=== PATIENT | female | born 1980 | race Caucasian/White ===

== ENCOUNTER → 2018-03-09 11:50 | Outpatient (CLI) | payer MEDICAID, SELFPAY ==
[2018-03-11 11:20] LABS: HPV Reflexed? NOT INDICATED
--- OUTSIDE RECORDS SUMMARY | 2018-04-25 15:18 | XMS RPT_ITS ---
:1980 Author Organization OHIP Care Team Providers Name Role Phone Yanely Velazquez Attending Unavailable Bertha, Eleanor Bethany Admitting Unavailable Bertha, Eleanor Bethany Attending Unavailable Bertha, Eleanor K Primary Care Unavailable Nikki Capellan Admitting Unavailable Nikki Capellan Attending Unavailable Bertha, Eleanor K Primary Care Unavailable Bitner, Nestor Admitting Unavailable Nikki Capellan Attending Unavailable Bertha, Eleanor K Primary Care Unavailable Marilia, Nestor Admitting Unavailable Nikki Capellan Attending Unavailable Bertha, Eleanor K Primary Care Unavailable Bitner, Nikki Fluler Admitting Unavailable BitnerNikki Attending Unavailable Bertha, Eleanor K Primary Care Unavailable Bertha, Eleanor K Primary Care Unavailable DO Wolfgang Murphy Admitting Unavailable DO Wolfgang Murphy Attending Unavailable BERTHA, ELEANOR Admitting Unavailable ELEANOR STONE Attending Unavailable BERTHA, ELEANOR Primary Care Unavailable NIKKI FU Admitting Unavailable NIKKI FU Attending Unavailable NIKKI FU Primary Care Unavailable ELEANOR STONE Consulting Unavailable PROVIDER, UNKNOWN Consulting Unavailable PROBLEMS PROBLEMS DATE TYPE CONDITION / CODE ATTENDING STATUS SOURCE 04/07/2018 Principle Gastro-esophageal ELEANOR STONE Diagnosis reflux disease [facility] Hospital esophagitis / Repository K219(ICD-10) 04/05/2018 Admitting Cutaneous abscess NIKKI FU [facility] L0201(ICD-10[facility] Repository 04/05/2018 Principle Cutaneous abscess NIKKI FU Active Jaden Tobin Diagnosis of face / T [facility] L0201(ICD-10) Hospital Repository 04/05/2018 Secondary Obesity, NIKKI FU Active Jaden Tobin Diagnosis unspecified / [facility] E669(ICD-10) Hospital Repository 04/05/2018 Secondary Body mass index NIKKI FU Active Jaden Tobin Diagnosis (BMI) 36.0-36.9, [facility] adult / Hospital Z6836(ICD-10) Repository 04/05/2018 Secondary Major depressive NIKKI FU Active Jaden oTbin Diagnosis disorder, single [facility], Hospital unspecified / Repository F329(ICD-10) 03/09/2018 Unknown Z12.4 - Encounter Yanely Velazquez for screening for [facility] neoplasm of Repository cervix / Z12.4(ICD-10) PROCEDURES PROCEDURES No Procedure Records FoundRESULTS RESULTS Observed: 04/05/2018 Status: F Source: JADEN TOBIN GRAM STAIN ROUTINE 1:36 PM [facility] REPOSITORY GRAM STAIN ROUTINE GRAM STAIN ROUTINE SOURCE _RT._FACE_WOUND__ 04/06/18.1154.BKO. AMOUNT DESCRIPTION _NO_ORGANISMS_SEEN 04/06/18.1154.BKO. Performed By: #### [id number] #### [facility],[address] [place] [id number] Observed: 04/05/2018 Status: Denys Source: JADEN TOBIN CULTURE WOUND 1:36 PM [facility] REPOSITORY CULTURE WOUND _WOUND CULTURE_ M I C R O B I O L O G Y R E P O R T FINAL Antimicrobial Susceptibility and Organism Identification Report Specimen Number : [id number] Requested : 04/05/18 Specimen Source : WOUND Collected : 04/05/18 13:36 Torres of Isolation : AMBULATORY Received : 04/05/18 13:36 Requesting Physician : krystyna ortiz Patient/Specimen Tests and Comments Specimen Comments FINAL REPORT: ABUNDANT GROWTH GRAM POSITIVE COCCI source: wound to right side of face Organisms Identified -------- * 01 Methicillin Resistant Staphylococcus aureus 04/07/18 Comments abundant growth Tech : Source : WOUND ID # : [id number] FINAL CALLED TO/BY JOSE/PIERRE/MARISOL [phone] Report Date : / / : Collected : 04/05/18 13:36 Continued on Next Page Skye I Neelam R O B I O L O G Y R E P O R T FINAL Antimicrobial Susceptibility and Organism Identification Report Isolate 01 Methicillin Resistant Staphylococcus aureus Methicillin Resistant Staphylococcus aureus DRUG ALEC Sys. Urine UNITS ML/DL --- ----- ----- Amp/Sulbactam 16/8 R* Ampicillin >8 R* Amox/K Clav >4/2 R* Clindamycin <=0.5 S Cefoxitin Screen >4 POS Ciprofloxacin >2 R Daptomycin <=0.5 S Erythromycin >4 R Nitrofurantoin <=32 Gentamicin <=4 S Inducible Clindamycin <=4/0.5 NEG Levofloxacin 4 I Linezolid 4 S Moxifloxacin 2 S Oxacillin >2 R Penicillin >8 R* Rifampin <=1 S Synercid <=0.5 S Trimeth/Sulfa <=0.5/9.5 S Tetracycline <=4 S Vancomycin 2 S B-Lactamase Positive +, ++, +++, or S = Susceptible N/R = Not Reported Marina = Beta Lactamase Positive I = Intermediate CC = Cost Code TFG = Thymidine-dependent Strain R = Resistant ALEC = mcg/ml (mg/L) Blank = Data not available, or drug not advisable or tested For Blood and CSF Isolates, a Beta-Lactamase test is recommended for Enterococus species. IB appears in place of S, I (S), +, ++, or +++ with species known to possess inducible B-lactamases; potentially they may become resistant to all B-lactam drugs. Monitoring of patients during/after therapy is recommended. Avoid other/combined B-lactam drugs. (a) Use maximum doses of drug with an aminoglycoside for P. aeruginosa in patients with granulocytopenia or serious infections. (b) Breakpoints based on parenteral dose. For cefuroxime Axetil (PO) use <8=S, 8-16=I, >16=R. (c) For non-enterococcal streptococci, Micrococcus species, and Listeria species, refer to the Ampicillin interpretation. * Interpretations based on approx. adult attainable systemic/urine levels, except drugs with <3 dilutions, which print NCCLS. Doses are guidelines; consider weight and renal/hepatic function. Urine interpretation for lower UTI only. Interpretations based on NCCLS M7-A2. Ticar/K Clav'ate for gram positives based on sex worker or escort's breakpoints. Tech : _0 Source : WOUND ID04/07/[id number].JLN. F L Report Date : / / : Collected : 04/05/18 13:36 04/07/18.0757.JLN. 04/06/18.0925.BKO. 04/07/18.0757.JLN.COMPLETE Performed By: #### [id number] #### [place] [id number] URINE Collected: 04/05/2018 Status: F Source: [facility] 1:05 PM [facility] REPOSITORY TYPE CODE TESTS RESULT OUT OF REFERENCE UNITS RANGE LAB NEGATIVE UR(LOINC) UR NEGATIVE LAB INTERNAL QC(LOINC) INTERNAL QC PASS LAB EXTERNAL QC DONE?(LOINC) EXTERNAL QC YES DONE? Performed By: #### [id number] #### [place] [id number] OPERATIVE PROCEDURES Observed: 04/05/2018 Status: F Source: [facility] 12:53 PM [facility] REPOSITORY [facility] OPERATIVE REPORT NAME ACCOUNT SEX AGE ADMIT DISCHARGE PT MED. RECORD# NUMBER DATE DATE TYPE CONTRERAS, [id number] F 37 04/05/18 04/05/18 2 LUANNE Hodges [id number] ROOM: [facility] DATE OF : 1980 DICTATING PHYSICIAN: Nikki Fu DATE OF SURGERY: April 05, 2018 SURGEON: Nikki Fu MD VOCATIONAL REHABILITATION SPECIALIST: ANESTHESIOLOGIST: ANESTHETIC: MAC with 1% lidocaine and 0.5% Marcaine without epinephrine locally. PREOPERATIVE DIAGNOSIS: Facial abscess. POSTOPERATIVE DIAGNOSIS: Facial abscess. OPERATION PERFORMED: Incision and drainage. COMPLICATIONS: None. ESTIMATED BLOOD LOSS: 2 mL. DRAINS: Half-inch Iodoform packed within the wound. DISPOSITION: The patient recovered in the PACU and then was discharged home. Diet: Regular. Activity: Regular. Medications: The patient was given Bactrim and Levaquin by her PCP and was instructed to resume this medication and finish the entire prescription. In addition, she was given [place] 5/325 mg 10 tablets as needed for pain analgesia. She was advised to remove the packing on postoperative day #1 and follow up in Dr. Fu's clinic on April 08, 2018. DESCRIPTION OF OPERATION: Following initiation of MAC anesthesia, the patient was sterilely prepped and draped in the usual sterile supine position. The patient was noted to have probably 7-8 cm of intense erythema and induration with central fluctuance and an area of approximately 0.5 cm of nonviable necrotic fibrinous skin. An elliptical incision was proposed around this. The elliptical incision was anesthetized with 1% and 0.5% Marcaine without epinephrine. The nonviable skin was then removed. Upon removal, there was slight drainage of purulent material. The wound fluid was Page 1 of 2 LUANNE CONTRERAS Operative Report cultured. The area was squeezed until no further purulent material came from the wound. The wound was then irrigated with copious amounts of saline. The wound was then explored with a hemostat to make sure that all loculations and pockets were broken up. Again, the wound was irrigated with more saline. The wound was then tightly packed with one-half inch Iodoform gauze. All instrument, needle and sponge counts were correct x2. The wound was appropriately dressed and bandaged. The patient was then awakened and taken to the PACU in good and stable condition. Dictated By: Nikki Fu MD 04/05/18 14:29 JOB #: [id number] Transcribed By: lonnie 04/05/18 15:59 Electronically signed by: E-SIGN DR. FU 04/11/18 10:25 Page 2 of 2 LUANNE CONTRERAS Operative Report CT MAXILLOFACIAL W/ Observed: 04/03/2018 Status: F Source: YAZIDI CONTRAST 5:42 PM [facility] REPOSITORY Exam Date/Time: 04/03/2018 17:57 EST Reason for Exam: facial abcess;Other (please specify) Report STUDY: CT Maxillofacial w/ Contrast 04/03/2018 5:57 pm INDICATION: Right facial swelling x4 days COMPARISON: None. ACCESSION NUMBER(S): [id number] ORDERING CLINICIAN: Wolfgang Murphy TECHNIQUE: Thin cut axial CT images through the facial bones were obtained and reconstructed in the coronal and sagittal plane. 100 mL Omnipaque 350 given intravenously. FINDINGS: Asymmetric soft tissue fat stranding involving subcutaneous soft tissues of the right face and overlying the right mandible and involving the right emergency worker muscle and right parotid gland without drainable fluid collection. Findings felt to represent cellulitis/infection. Parapharyngeal space is maintained bilaterally Nasopharyngeal tissues symmetric. Scattered dental disease. Epiglottis, aryepiglottic folds and level true /false cords appear grossly unremarkable. Mild heterogeneity thyroid gland which may represent very small benign colloid type cysts and/or papillary or follicular type lesions Posterior fossa bone artifact however 4th ventricle midline/not effaced Bilateral mastoid antrum well aerated. Mucosal thickening bilateral ethmoid air cells. IMPRESSION: Exam Date/Time: 04/03/2018 17:57 EST Report Right facial cellulitis. FINAL REPORT Dictated: 04/03/2018 6:32 pm Davy Bender DO Signed (Electronic Signature): 04/03/2018 6:32 pm Signed by: Davy Bender DO Technologist: CHAD CBC W/ AUTO DIFF Collected: 04/03/2018 Status: F Source: YAZIDI 3:56 PM [facility] REPOSITORY TYPE CODE TESTS RESULT OUT OF RANGE REFERENCE UNITS LAB 65137885(L 3.6-11.0 E3/mcL OINC) Normal WBC 10.4 LAB 66987998(L 3.90-5.40 E6/mcL OINC) Normal RBC 4.22 LAB 07832107(L 12.0-16.0 G/DL OINC) Low Hgb 11.5 LAB 86911933(L 36.0-48.0 % OINC) Low Hct 35.5 LAB 28033870(L 11.5-14.5 % OINC) High RDW 15.1 LAB 73266132(L 27.0-31.0 pg OINC) Normal MCH 27.3 LAB 80423754(L 33.0-37.0 G/DL OINC) Low MCHC 32.5 LAB 49926708(L 78.0-100.0 fL OINC) Normal MCV 84.1 LAB 48818833(L 7.4-11.0 fL OINC) Normal MPV 8.2 LAB 81674097(L 130-400 E3/mcL OINC) Normal Platelet 273 Performed By: #### [id number] #### [facility]ANT[facility]H [facility] [place] [id number] AUTO DIFF Collected: 04/03/2018 Status: F Source: YAZIDI 3:56 PM [facility] REPOSITORY Order Comment: Order Added by Discern Expert. TYPE CODE TESTS RESULT OUT OF RANGE REFERENCE UNITS LAB 39055951(L 37.0-75.0 % OINC) High Neutro Auto 79.7 LAB 39933755(L 20.0-55.0 % OINC) Low Lymph Auto 11.9 LAB 30026484(L 0.0-10.0 % OINC) Normal Bonner Auto 7.4 LAB 06693015(L 0.0-11.0 % OINC) Normal Eos Auto 0.6 LAB 36990920(L 0.0-2.0 % OINC) Normal Basophil Auto 0.4 LAB 85447010(L 1.4-6.5 E3/mcL OINC) High Neutro 8.3 Absolute LAB 58369480(L 1.2-3.4 E3/mcL OINC) Normal Lymph Absolute 1.2 LAB 38605099(L 0.0-0.7 E3/mcL OINC) High Bonner Absolute 0.8 LAB 08386708(L 0.0-0.7 E3/mcL OINC) Normal Eos Absolute 0.1 LAB 43321002(L 0.0-0.2 E3/mcL OINC) Normal Basophil 0.0 Absolute Performed By: #### [id number] #### [facility]5 [place] [id number] LACTIC ACID Collected: 04/03/2018 Status: F Source: YAZIDI 3:56 PM [facility] REPOSITORY TYPE CODE TESTS RESULT OUT OF RANGE REFERENCE UNITS LAB 37464494(LO 0.4-2.0 mmol/L INC) Normal Lactic Acid 0.7 Lvl Performed By: #### [id number] #### [facility] [address] [place], [place] [id number] CMP Collected: 04/03/2018 Status: F Source: YAZIDI 3:56 PM [facility] REPOSITORY TYPE CODE TESTS RESULT OUT OF RANGE REFERENCE UNITS LAB 14149910(L 70-99 mg/dL OINC) High Glucose Lvl 103 LAB 83356602(L 6-23 mg/dL OINC) BUN Normal 9 LAB 1410170(LO 0.5-1.1 mg/dL INC) Normal Creatinine 0.6 LAB 72809897(L 8.6-10.3 mg/dL OINC) Calcium Normal Lvl 8.8 LAB 58039718(L 136-145 mEq/L OINC) Low Sodium Lvl 135 LAB 42323399(L 3.5-5.3 mEq/L OINC) Normal Potassium Lvl 3.5 LAB 12912180(L 98-107 mEq/L OINC) Chloride Normal 104 LAB 93305997(L 21.0-32.0 mEq/L OINC) CO2 Normal 24.0 LAB 54158389(L 33-110 Int._Unit/ OINC) L Alk Phos Normal 89 LAB 43484875(L 0.00-1.20 mg/dL OINC) Bili Normal Total 0.27 LAB 46381869(L 3.4-5.0 gm/dL OINC) Albumin Normal Lvl 3.9 LAB 82862399(L 6.4-8.2 gm/dL OINC) Total Normal Protein 6.5 LAB 31825695(L 7-45 Int._Unit/ OINC) L ALT Normal 14 LAB 75348018(L 9-39 Int._Unit/ OINC) L AST Normal 15 LAB 25181233(L 5.4-30.0 ratio OINC) Normal BUN/Creat Ratio 15.0 LAB 70041058(L 10-20 mEq/L OINC) AGAP Normal 11 LAB 57451965(L 2.0-4.0 G/DL OINC) Globulin Normal 3.0 LAB 37944570(L 1.1-1.9 ratio OINC) A/G Normal Ratio 1.5 Performed By: #### [id number] #### [facility] [place] [address] EGFR Collected: 04/03/2018 Status: F Source: YAZIDI 3:56 PM [facility] REPOSITORY Order Comment: Order added by Discern Expert. TYPE CODE TESTS RESULT OUT OF RANGE REFERENCE UNITS LAB 82834323(LO mL/min/1.73 INC) m2 Normal eGFR >60 LAB 38006393(LO mL/min/1.73 INC) m2 Normal eGFR AA >60 Performed By: #### [id number] #### [facility] [place] [address] C Observed: 04/02/2018 Status: F Source: YAZIDI ANAEROBIC 3:26 PM [facility] REPOSITORY Final Report: No Anaerobe isolated at 48 hours. Gram Stain Report: Few Gram Positive Cocci Performed By: #### [id number] #### SANTOSH Microbiology Subsection [facility] [place] [address] Observed: 04/02/2018 Status: F Source: YAZIDI C WOUND 3:26 PM [facility] REPOSITORY Final Report: Moderate Methicillin-Resistant Staphylococcus aureus MRSA ORGANISM: MRSA Gram Stain Report: Few Gram Positive Cocci SUSCEPTIBILITY RESULTS Antibiotic ALEC Dilutn ALEC Interp ORGANISM: MRSA Amox/Cla : >4/2 R* Amp : >8 R* Amp/Sul : 16/8 R* Ceftri : 32 R* Cipro : >2 R Clinda : <=0.5 S Eryth : >4 R Gent : <=4 S ICd : <=4/0.5 Neg Levo : >4 R Line : 2 S Ox : >2 R Pen : >8 R* Rif : <=1 S Tetra : <=4 S SXT : <=0.5/9.5 S Vanc : 1 S Performed By: #### [id number] #### SANT[facility] Microbiology Subsection [address] [place] [address] PAP I-G W/RFX HRHPV Collected: 03/09/2018 Status: F Source: CLARA 10:30 AM [facility] REPOSITORY Order Comment: CYTOLOGY INFORMATION: - CLINICAL INFORMATION: - DATE LMP/MENOPAUSE: 02/23/18 LMP - COLLECTION VIAL: Thin Prep Vial - ACTUARIAL INTERN SOURCE: CERVICAL/ENDOCERVICAL - COLLECTION TECHNIQUE: BRUSH/SPATULA Specimen Comment: [id number] Specimen Comment: Source.............Cervix;Endocervix Specimen Comment: LMP / Prev Treat...[id number] Specimen Comment: No. of containers..01 ThinPrep Vial TYPE CODE TESTS RESULT OUT OF RANGE REFERENCE UNITS LAB L7400.0800 . Normal DIAGN Comment Result Comment: NEGATIVE FOR INTRAEPITHELIAL LESION AND MALIGNANCY. LAB L7400.0900 . Normal ADEQ Comment Result Comment: Satisfactory for evaluation. Endocervical and/or squamous metaplastic cells (endocervical component) are present. LAB L7400.1400 . Normal PERFORM Comment Result Comment: John Ozuna, [employer] (ASCP) LAB L7400.2575 . Normal TEST METHOD Comment Result Comment: This liquid based ThinPrep(R) pap test was screened with the use of an image guided system. LAB L7400.2600 . Normal . COMM LAB L7400.2700 . Normal PAPSMR Comment Result Comment: The Pap smear is a screening test designed to aid in the detection of premalignant and malignant conditions of the uterine cervix. It is not a diagnostic procedure and should not be used as the sole means of detecting cervical cancer. Both false-positive and false-negative reports do occur. LAB L7400.2800 . Normal HPV RFLX Comment Result Comment: The HPV DNA reflex criteria were not met with this specimen result therefore, no HPV testing was performed. Performed at: [facility] [id number] Testing Director: Salina العراقي MD, Phone: [phone] Performed By: #### L7400.0350 #### [facility] (refer to report for specific site) refer to report for address and phone number LAB MISCELLANEOUS Collected: 06/24/2017 Status: F Source: YAZIDI 9:35 AM [facility] REPOSITORY TYPE CODE TESTS RESULT OUT OF RANGE REFERENCE UNITS LAB 78452403(LO INC) Normal Test Name breath test LAB 07364353(LO INC) Normal Status See Ref Lab Report Performed By: #### [id number] #### [facility] [place] [address] CBC W/ AUTO DIFF Collected: 06/24/2017 Status: F Source: YAZIDI 9:35 AM [facility] REPOSITORY TYPE CODE TESTS RESULT OUT OF RANGE REFERENCE UNITS LAB 30132427(L 3.6-11.0 E3/mcL OINC) Normal WBC 6.7 LAB 39434845(L 3.90-5.40 E6/mcL OINC) Normal RBC 4.47 LAB 77066420(L 12.0-16.0 G/DL OINC) Normal Hgb 12.0 LAB 05948533(L 36.0-48.0 % OINC) Normal Hct 36.8 LAB 97646800(L 11.5-14.5 % OINC) High RDW 16.1 LAB 93189570(L 27.0-31.0 pg OINC) Low MCH 26.8 LAB 34426557(L 33.0-37.0 G/DL OINC) Low MCHC 32.6 LAB 49928396(L 78.0-100.0 fL OINC) Normal MCV 82.2 LAB 68105664(L 7.4-11.0 fL OINC) Normal MPV 8.0 LAB 69649954(L 130-400 E3/mcL OINC) Normal Platelet 318 Performed By: #### [id number] #### [facility] [address] [place] [address] AUTO DIFF Collected: 06/24/2017 Status: F Source: YAZIDI 9:35 AM [facility] REPOSITORY Order Comment: Order Added by Discern Expert. TYPE CODE TESTS RESULT OUT OF RANGE REFERENCE UNITS LAB 92121957(L 37.0-75.0 % OINC) Normal Neutro Auto 68.2 LAB 22138877(L 20.0-55.0 % OINC) Normal Lymph Auto 23.8 LAB 59345657(L 0.0-10.0 % OINC) Normal Bonner Auto 6.6 LAB 95830697(L 0.0-11.0 % OINC) Normal Eos Auto 1.0 LAB 05931296(L 0.0-2.0 % OINC) Normal Basophil Auto 0.4 LAB 98481606(L 1.4-6.5 E3/mcL OINC) Normal Neutro 4.6 Absolute LAB 16775284(L 1.2-3.4 E3/mcL OINC) Normal Lymph Absolute 1.6 LAB 08062055(L 0.0-0.7 E3/mcL OINC) Normal Bonner Absolute 0.4 LAB 99916416(L 0.0-0.7 E3/mcL OINC) Normal Eos Absolute 0.1 LAB 98917870(L 0.0-0.2 E3/mcL OINC) Normal Basophil 0.0 Absolute Performed By: #### [id number] #### S[facility] [address] [place] [address] CMP Collected: 06/24/2017 Status: F Source: YAZIDI 9:35 AM [facility] REPOSITORY TYPE CODE TESTS RESULT OUT OF RANGE REFERENCE UNITS LAB 93342459(L 70-99 mg/dL OINC) High Glucose Lvl 100 LAB 86380672(L 7-18 mg/dL OINC) BUN Normal 11 LAB 5160055(LO 0.6-1.3 mg/dL INC) Low Creatinine 0.5 LAB 98199512(L 8.4-10.2 mg/dL OINC) Calcium Normal Lvl 8.7 LAB 55597064(L 136-145 mEq/L OINC) Sodium Normal Lvl 137 LAB 10081620(L 3.5-5.1 mEq/L OINC) Normal Potassium Lvl 3.9 LAB 49344558(L 98-107 mEq/L OINC) Chloride Normal 106 LAB 10024285(L 24.0-30.0 mEq/L OINC) Low CO2 23.5 LAB 26497905(L 5.4-30.0 ratio OINC) Normal BUN/Creat Ratio 22.0 LAB 07959726(L 42-121 Int._Unit/ OINC) L Alk Phos Normal 71 LAB 41347250(L 0.2-1.0 mg/dL OINC) Bili Normal Total 0.4 LAB 02386070(L 3.2-5.0 G/DL OINC) Albumin Normal Lvl 3.9 LAB 18965921(L 6.4-8.3 G/DL OINC) Total Normal Protein 7.1 LAB 02330262(L 10-40 Int._Unit/ OINC) L ALT Normal 17 LAB 85622643(L 10-42 Int._Unit/ OINC) L AST Normal 20 LAB 96050215(L 2.0-4.0 G/DL OINC) Globulin Normal 3.2 LAB 41025017(L 1.1-1.9 ratio OINC) A/G Normal Ratio 1.2 Performed By: #### [id number] #### [facility] [address] [place] [address] EGFR Collected: 06/24/2017 Status: F Source: YAZIDI 9:35 AM [facility] REPOSITORY Order Comment: Order added by Discern Expert. TYPE CODE TESTS RESULT OUT OF RANGE REFERENCE UNITS LAB 02689092(LO mL/min/1.73 INC) m2 Normal eGFR >60 LAB 67174365(LO mL/min/1.73 INC) m2 Normal eGFR AA >60 Performed By: #### [id number] #### [facility] [address] [place] [address] ALLERGIES ALLERGIES DATE TYPE / CODE NAME / CODE REACTION SEVERITY SOURCE Environmental 04/07/2018 (+) U [facility]ergy/769099502(S MRSA WOUND [facility][note 3]) Hospital Repository Miscellaneous No Known Drug Moderate Jaden Pomereoh Allergy/860309408(S Allergies ([facility] NOMED [facility]) Modifier) [facility] (Qualifier Repository Value) Drug/578942925(SNOM No Known Restoration ED CT) Allergies [facility] Repository ENCOUNTERS ENCOUNTERS ADMIT/DISCHARGE ACCOUNT NUMBER ADMITTING ENCOUNTER LOCATION SOURCE CLASS 04/07/2018 [id number] ELEANOR STONE Ambulatory [facility] Repository 04/05/2018/04/05/19 [id number] KRYSTYNA, Ulises Buildin[address] [place] [address] Room: [address] Repository 04/03/2018/04/03/19 [id number] DO [facility] ding:[facility] EDRoom: Repository 04/03/2018/04/03/19 [id number] Marilia[facility] ding:CD:[address] [facility] [id number]: Repository CD:[id number] 04/03/2018 [id number] Ambulatory [address] [facility] Repository 04/02/2018/04/02/19 [id number] Marilia, Ambulatory Restoration Restoration [facility] ding:[facility] Repository 04/02/2018/04/02/19 [id number] Marilia, Ambulatory Restoration Restoration [facility] ding:CD:[address] [facility] [id number]: Repository CD:[id number] 04/02/2018 [id number] Ambulatory 9855 [facility] Repository 04/01/2018/04/01/19 [id number] Marilia, [facility] 19 [address] [facility] ding:CD:1320 [facility] [id number]: Repository CD:[id number] 03/09/2018 [id number] [facility] ding:[facility] Repository 06/24/2017/06/25/19 [id number] Eleanor Stone Ambulatory [facility] [address] [facility] ding:SH.[facility] Repository PAYERS PAYERS ENCOUNTER GUARANTOR PAYER SUBSCRIBER SOURCE 04/07/2018 TAWANA Primary LUANNE Hodges TUDORDOB: Jaden CONTRERASB: Insurance:[facility] [id number] [facility] - MEDICAID [facility]OPolicy [facility] Number: JERMAINE Repository [facility], [id number] [address] [place] [address]Vuz: Date:Plan Name: () 04/05/2018 TAWANA Primary Tawana Jaden CONTRERASB: Insurance:[facility] DianeB: [facility] - MEDICAID HMOPolicy [id number] [place] [address] [facility]: [facility], [id number] [place], [place] [address]Zoj: Date:Plan Name:MD Fishman [id number] () 04/03/2018 TAWANA Primary LUANNE CONTRERASDOB: Insurance:[facility]: [facility] Number: [id number] [facility] Repository STLOUDONVANASTACIA, Date:2018-04-03 - [facility] [place] 2290-89-71Pmdw [place] [address]Vrr: Name:CD:[id number]: [facility] [address], [place] ([place]) [address]JV: [phone] () [phone] () 04/03/2018 TAWANA Primary LUANNE BLACKB: Insurance:[employer]ES[employer] EDWARDSDOB: [facility] E MCAIDPolicy Number: [id number] [facility] Repository [facility], Date:2018-04-03 - [place], [place] [id number] [place] [address]Nmj: Name:[id number]: [address] (HP) [address]ZT: (800) (HP) 000-0000 (WP) 04/03/2018 LUANNE DIANEDOB: Primary LUANNE WAYNEB: [place] E [facility] [id number] [facility] nazario Number: [place] ANDINO Repository [facility], [id number] [place], [place] [id number]: Date:[facility] [id number]: Name:[facility] (HP) [address] [place] [address] (HP) [id number]: 04/02/2018 TAWANA Primary LUANNE BLACKB: Insurance[facility] E MCAIDPolicy Number: [id number] System [facility] E ANDINO Repository [facility], Date:2018-04-02 - [place], [place] [id number] [place] [address]Wnc: Name:[id number]: [address] [place] [address] (HP) [phone]: (800) (HP) 000-0000 (WP) 04/02/2018 TAWANA Primary LUANNE BLACKB: Insurance:[facility] EDWARDSDOB: [facility] E MCAIDPolicy Number: [id number] System SINA Effective E SINA Repository [facility], Date:2018-04-02 - [place], [place] [id number] [place] [address]Ubo: Name:[id number]: [address] [place] [address] (HP) [phone]: (800) (HP) 000-0000 (WP) 04/02/2018 LUANNE CONTRERASDOB: Primary LUANNE WAYNEB: [place] Insurance:[facility] [id number] [facility] Number: E SINA Repository [facility], [id number] [place], [place] [id number]: Date:[facility] [id number]: Name:[facility] Box (HP) [address] [place] [address] (HP) [id number]: 04/01/2018 TAWANA Primary LUANNE CONTRERASDOB: [facility]Policy Number: [id number] System ANDINO Effective E SINA Repository [facility], Date:2018-04-01 - [place] [id number] [place] [address]Dtq: Name:[id number]: [address] [place] [address] (HP) [phone]: (800) (HP) 000-0000 (WP) 03/09/2018 LUANNE PRATT9 Primary LUANNE BLACKB: [facility] [id number] [facility] Number: [facility] [address]Qio: [id number] Repository Date:2018-03-09 O () [address]ATTN: [place] [address]XB: 03/09/2018 Secondary NOT GIVENUNK [place] Insurance:SELF PAY [facility] Number: Effective Repository Date:2018-03-09 06/24/2017 LUANNE BEJARANOOB: Primary LUANNE PATRICKRDOB: [place] E Insurance:[facility] [id number] [facility] Number: E [facility], Effective [facility], Repository [place] [id number]: Date:2017-06-24 [place] [id number]: [id number] () Name:CD:[id number] ()Tel: (000) [address], [place] 000-0000 () [address]ZX:
== END ==
PROVIDERS: Visit Provider Obstetrics & Gynecology
DX: Z12.4 Encounter for screening for malignant neoplasm of cervix (principal)
CPT/HCPCS: 88175; G0145